=== PATIENT | female | born 1990 | race Caucasian/White ===

== ENCOUNTER 2016-07-15 15:46 | Emergency (ER) | payer OTHER ==
[~2016-07-15] VITALS: Ht 170.2 cm; Wt 70.3 kg
[2016-07-15 16:12] VITALS: BP 108/58
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
[2016-07-15] MEDS ORDERED: CYCLOBENZAPRINE10 M1 PO (17:08)
[2016-07-15] MEDS ORDERED: IBUPROFEN600 M1 PO (17:08)
== END 2016-07-15 19:12 ==
LOC: ERH 15:46
DX: S80.01XA Contusion of right knee, initial encounter (principal); V49.40XA Driver injured in collision with unspecified motor vehicles in traffic accident, initial encounter; Y92.410 Unspecified street and highway as the place of occurrence of the external cause
CPT/HCPCS: 73562-RT